=== PATIENT | female | born 1975 | race Caucasian/White ===

== ENCOUNTER → 2019-02-12 17:27 | Outpatient (CLI) | payer OTHER, SELFPAY | PROVIDERS: Family Provider Family Medicine; PCP Family Medicine; Referring Provider Nurse Practitioner Family; Visit Provider Nurse Practitioner Family | DX: N39.0 Urinary tract infection, site not specified (principal) | CPT/HCPCS: 87086 ==

== ENCOUNTER 2019-07-28 08:34 | Observation (INO) | payer OTHER, SELFPAY ==
[2019-07-28] VITALS (11 sets, daily range): BP systolic 100–144; BP diastolic 61–104; PULSE 65–80; RESP 16–18; TEMP 36.4–37.7; O2SAT 70–99; BMI 34.6; BMI 34.3; BMI 34.4
--- NOTE | 2019-07-28 08:52 | CT_ITS ---
STUDY: CT ABDOMEN AND PELVIS WITHOUT CONTRAST REASON FOR EXAM: Female, 43 years old. RT FLANK PAIN X 2 DAYS, N/V, [place] RADIATION DOSAGE (If Supplied By Facility): CTDIvol = ( 17.56 ) mGy, DLP = ( 960.66 ) mGycm TECHNIQUE: Transaxial images were obtained from the dome of the diaphragm to the symphysis pubis without oral contrast, and without intravenous contrast. Sagittal and coronal images were reconstructed. Individualized dose optimization techniques were used for this CT. COMPARISON: None. FINDINGS: The visualized lung bases are unremarkable. The visualized portions of the heart are within normal limits. Normal liver. There are surgical clips in the gallbladder fossa consistent with a prior cholecystectomy. Normal spleen. Normal pancreas. Normal bilateral adrenal glands. Marked in degree of right hydronephrosis and right hydronephrosis down to the right ureterovesical junction due to a 5.2 mm calculus. There is evidence of right perinephric stranding.. There is a 2.2 cm by 2.4 cm hypodensity in the posterior lateral aspect of the upper pole of the right kidney suggestive of a cyst. There is a nonobstructive 4.8 mm calculus in the lower pole calyx of the left kidney. There is a small hiatal hernia. Normal small intestine. Normal colon. The appendix is visualized and appears normal. Normal abdominal aorta. Normal inferior vena cava. There is borderline retroperitoneal lymphadenopathy with enlarged nodes no greater than 10mm in the short axis diameter. Normal urinary bladder. Normal abdominal wall. Normal osseous structures. CT/Abdomen/Pelvis without Cont IMPRESSION: 5.2 mm calculus at the right ureterovesical junction causing a marked degree of right hydronephrosis and right hydroureter. Small cyst in the upper pole of the right kidney. Nonobstructive calculus in the left kidney. Electronically Signed: Dale Hasy, at 10:28 EST , Service support ,
[2019-07-28 09:16] LABS: Absolute Lymphocyte Count 1.36 X10^3/uL (0.83-4.51); Absolute Neutrophil Count 13.5 X10^3/uL (2.0-7.7); Basophil# 0.06 X10^3/uL; Basophil% 0.4 % (0-1); Eosinophil# 0.03 X10^3/uL; Eosinophils% 0.2 % (0-5); Hematocrit 39.3 % (37-47); Hemoglobin 12.9 g/dL (12.0-15.0); Lymphocyte # 1.36 X10^3/ul (4.0); Lymphocyte % 8.5 % (19-41); Mean Corp Hgb Conc 32.8 g/dL (32-36); Mean Corpuscular Hgb 28.2 pg (27.0-32.0); Mean Corpuscular Volume 85.8 fL (81-99); Mean Platelet Vol. 11.4 fl (6.2-12.0); Monocyte# 0.96 X10^3/uL; NRBC Flagged by Analyzer 0 % (0-5); Neutrophil # 13.52 X10^3/uL (2.7-7.7); Neutrophil % 84.6 % (47-70); Platelet Count 271 K/mm3 (150-450); RBC Distribution Width CV 13.1 % (11.6-14.6); Red Blood Count 4.58 M/mm3 (4.2-5.4)
[2019-07-28] MEDS: 0.9% Normal Saline 1,000 ML 250 ML IV (09:18)
[2019-07-28] MEDS: Ketorolac 30 MG/ML Syringe 15 MG IV (09:19)
[2019-07-28] MEDS: Ondansetron 4 MG/2 ML Vial IV (09:19)
[2019-07-28 09:25] LABS: Mucous, Urine 0 SEEN /hpf (<or=2+)
--- NOTE | 2019-07-28 09:27 | ED.VIS.GEN ---
History of Present Illness Chief Complaint: Abd Pain Informant: Patient Onset: - July 26 Context: Sudden Onset Timing: Continuous Quality: Pain Location: Right flank radiating anteriorly Current Severity: Mild Maximum Severity: Moderate Worsened by: Movement Relieved by: Nothing Associated Symptoms: Nausea and vomiting Narrative: It is a 43-year-old woman status post cholecystectomy who presents with acute onset of right flank pain associate with nausea vomiting radiation anteriorly. She denies history of renal urolithiasis. She denies food intolerance. There is no history of trauma. She has not noted change in the color of her urine and specifically has not noted blood. She does report mild cough. The cough started several hours ago. She denies dyspnea or dyspnea on exertion. She has no other URI symptoms. She has not noted a rash. Prior similar symptoms: No Recent Illness/Hospitalization: No - Past Medical History (1) No significant past medical history Status: Acute Past Medical History - Allergies and Home Meds Allergies/Adverse Reactions: Allergies No Known Allergies Allergy (Verified 07/28/19 08:35) Primary Care Physician: Crista Charles MD [Primary Care Provider] - Surgical History: cholecystectomy Lives: Spouse/ Significant Other, With Family Smoking Status: Never smoker Alcohol: Rare Drugs: None Review of Systems General: Denies: Chills, Fever, Malaise, Subjective, Sweats Eyes: Denies: Visual changes - bilaterally, Blurred Vision - bilaterally ENT: Denies: Bilateral ear pain, Rhinorrhea, Sore throat Cardiovascular: Denies: Chest pain, Palpitations Respiratory: Reports: Cough. Denies: Dyspnea, Sputum, Dyspnea on exertion Gastrointestinal: Reports: Abdominal pain, Nausea, Vomiting. Denies: Diarrhea, Constipation, Melena, Hematochezia, -, - Genitourinary: Denies: Dysuria, Hematuria, Frequency Musculoskeletal: Reports: Back pain. Denies: Myalgias, Arthralgias, Neck pain, Swelling, Extremity Pain Skin: Denies: Rash, Wounds Neurological: Denies: Headache, Weakness, Numbness Hematologic: Denies: Easy bruising, Easy bleeding Physical Exam Vital Signs/Narrative: Vital Signs Temp Pulse Resp BP Pulse Ox 07/28/19 08:36 98.4 F 71 17 142/89 H 99 Inital Vital Signs reviewed: Yes General: Well nourished, Well developed, Obese, No Acute Distress Head: Normocephalic, Atraumatic Eyes: Perrl, EOMI. Negative for: Pale conjunctiva, Scleral icterus ENT: Moist mucous membranes, No rhinorrhea, TM's clear Neck: Supple, Nontender, No lymphadenopathy, No JVD Cardiovascular: Regular rate, Regular rhythm, No murmurs, Normal S1, Normal S2 Respiratory: No distress, CTA bilaterally, Chest nontender Abdomen: Soft, Nondistended, Normal bowel sounds, No masses, Tender - Tenderness in the right side. There is no tenderness in the proximity McBurney's point.. Negative for: Hepatomegaly, Splenomegaly, Mass, Rovsig's sign, Ramirez's sign Back: Nontender, Normal Inspection, CVA tenderness. Negative for: Spinal tenderness Extremities: Nontender, No edema Skin: Normal color, No rash, No Trauma. Negative for: Cyanosis, Diaphoresis, Jaundice Neurological: Alert, Oriented x3, Cranial nerves II-XII grossly intact, Normal Strength, Normal Sensation Psychological: Normal affect, Normal Mood Diagnostic/Tx/Re-eval 07/28/19 08:52 Abdomen/Pelvis without Cont [CT] Stat Laboratory Results 07/28/19 07/28/19 07/28/19 09:05 09:05 09:15 WBC 16.0 H RBC 4.58 Hgb 12.9 Hct 39.3 MCV 85.8 MCH 28.2 MCHC 32.8 RDW Std Deviation 40.0 RDW Coeff of [place] 13.1 Plt Count 271 MPV 11.4 Immature Gran % (Auto) 0.300 Neut % (Auto) 84.6 H Lymph % (Auto) 8.5 L [place] % (Auto) 6.0 Eos % (Auto) 0.2 Baso % (Auto) 0.4 Absolute Neuts (auto) 13.5 H Absolute Lymphs (auto) 1.36 Nucleated RBC % 0 Sodium 135 L Potassium 3.9 Chloride 108 H Carbon Dioxide 23.0 Anion Gap 4 L BUN 15 Creatinine 1.34 H Estim Creat Clear Calc 53.73 Est GFR (MDRD) Af Amer 56 L Est GFR (MDRD) Non-Af 46 L BUN/Creatinine Ratio 11.2 Glucose 97 Calcium 9.9 Urine Color Yellow Urine Clarity Sl. Cloudy Urine pH 5.0 Ur Specific [place] 1.020 Urine Protein Negative Urine Glucose (UA) Normal Urine Ketones Negative Urine Occult Blood 50 H Urine Nitrite Negative Urine Bilirubin Negative Urine Urobilinogen Normal Ur Leukocyte Esterase 100 H Urine RBC 0-5 SEEN Urine WBC 0-5 SEEN Ur Squamous Epith Cells 0-5 SEEN Urine Bacteria RARE Urine Mucus 0 SEEN Formal read by radiologist is pending. Case was discussed with urologist. He is made aware of patient history, physical, laboratory results and CT results. He requested admission. He requested nurse call for orders. - Medical Decision Making Acute onset of flank pain rating anteriorly need to consider renal/ureteral lithiasis. Since patient is status post cholecystectomy doubt choledocholithiasis. This may represent a urinary tract infection. Appropriate blood work including UA was obtained. Because there is significant tenderness on the right side and may represent atypical presentation for appendicitis CT of the abdomen pelvis without contrast was obtained to evaluate both the system and the appendix since symptoms have been present for greater than 24 hours. It is elevated. Urine reveals leukoesterase. There is no pyuria on microscopic. There is evidence of bacteria. Urine culture was ordered. She did receive 1 g of Rocephin. Because of the elevated creatinine from 0.8-1.3 for significant hydronephrosis and hydroureter secondary to obstructing distal stone Dr. duffy was paged. ED Disposition - Plan for ED Patient: Disposition: Acute Care Hospital [facility] Diagnosis: Hydronephrosis concurrent with and due to calculi of kidney and ureter, Acute renal insufficiency, Dehydration, Bacteria in urine Referrals: Crista Charles MD [Primary Care Provider] -
[2019-07-28 09:29] LABS: Anion Gap 4 (5-15); BUN 15 mg/dL (7-18); BUN/Creat Ratio 11.2 RATIO (10-20); Calcium,Total 9.9 mg/dL (8.5-10.1); Chloride 108 mmol/L (98-107); Creatinine, Serum 1.34 mg/dL (0.55-1.02); EST Glomerular Filtration Rate 46 mL/min (>60); Est Glom Filt Rate - Afr Amer 56 mL/min (>60); Estimated Creatinine Clearance 53.73 ml/min; Glucose 97 mg/dL (74-106); Potassium 3.9 mmol/L (3.5-5.1); Sodium Level 135 mmol/L (136-145)
[2019-07-28 09:36] LABS: Color, Urine Yellow (Yellow); Glucose, Dipstick Normal (Normal); Ketone-Dipstick Negative (Negative); Leukocyte Esterase-Dipstick 100 /ul (Negative); Nitrite-Dipstick Negative (Negative); Occult Blood-Urine 50 /ul (Negative); Protein-Dipstick Negative (Negative); Urine Bilirubin Dipstick Negative (Negative); Urine Clarity Sl. Cloudy (Clear); Urine Urobilinogen Normal (Normal)
[2019-07-28 09:40] LABS: Red Blood Cells-Urine 0-5 SEEN /hpf (0-5); Squamous Epithelial Cells - UA 0-5 SEEN /hpf (5-10); White Blood Cells 0-5 SEEN /hpf (0-5)
[2019-07-28 09:41] LABS: Bacteria RARE /hpf (None Seen)
--- NOTE | 2019-07-28 10:27 | NURSING ---
MED SURG OBS KIM HYDRONEPHROSIS AND URETER DUE TO OBSTRUCTING CALCULUS, ABILIO, DEHYDRATION
[2019-07-28] MEDS: Ceftriaxone 1 GM/50 ML BAG IV (10:37)
[2019-07-28] MEDS: Morphine 4 MG/ML Syringe IV (10:38)
[2019-07-28] MEDS: 0.9% Normal Saline 1,000 ML 125 ML IV ×2 (12:21→17:21)
--- NOTE | 2019-07-28 12:28 | PCM.HP.STD ---
History of Present Illness Date of Admission: 07/28/19 Chief Complaint: Right kidney stone The patient is a 43 year old female admitted from the emergency room with severe right hydronephrosis and a high grade obstruction and a 5 mm stone in the distal right ureter. She also has elevated white blood count possible bacteria in the urine. 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 Lives: Spouse/ Significant Other, With Family Smoking Status: Never smoker Tobacco Use: Non-smoker Alcohol: Rare Drugs: None - *Family History Maternal History Items: No pertinent history Review of Systems Constitutional: Denies: Chills, Fever, Weight Change HEENT: Denies: Head Aches, Sinus Congestion, Sinus Drainage Cardiovascular: Denies: Chest Pain, Palpitations Respiratory: Denies: Cough, Shortness of breath at rest, Sputum production Gastrointestinal: Denies: Abdominal Pain, Nausea, Vomiting Genitourinary: Denies: Dysuria Musculoskeletal: Denies: Joint Pain, Joint Tenderness Skin: Denies: Rash, Wounds Neurological: Denies: Numbness, Tingling, Focal weakness Psychiatric: Denies: Anxiety, Depression, Homicidal Ideations, Suicidal Ideations Hematologic/ Lymphatic: Denies: Easy Bruising, Easy Bleeding VTE Information - Inpt Only VTE Present on Admission: No Patient Problems: Active and Suspected Problems No significant past medical history (Acute) Hydronephrosis concurrent with and due to calculi of kidney and ureter (Acute) Acute renal insufficiency (Acute) Dehydration (Acute) Bacteria in urine (Acute) - Physical Exam Vitals/I&O's: Vital Signs Temp Pulse Resp BP Pulse Ox 98.2 F 69 18 144/104 H 99 07/28/19 11:10 07/28/19 11:10 07/28/19 11:10 07/28/19 11:10 07/28/19 11:10 Oxygen Delivery Method Room Air Weight: 99.5 kg Body Mass Index (BMI) 34.3 Intake and Output for Last 24 Hours 07/26/19 07/27/19 07/28/19 23:59 23:59 23:59 Intake Total 812.5 / 812.5 Balance 812.5 / 812.5 General: Alert, Oriented x3, Cooperative HEENT: Atraumatic, PERRLA, EOMI, Normocephalic Neck: Supple, No JVD, Negative Carotid Bruits Lungs: Clear to auscultation, Normal air movement Cardiovascular: Regular rate, No murmurs Abdomen: Bowel Sounds Present, Soft, Non Tender Extremities: No edema, Capillary Refill Less than 3 Seconds Skin: No rashes, No breakdown Musculoskeletal: No Tenderness to Palpation of Joints or Extremities Neurological: Cranial nerves II-XII grossly intact Psych/Mental Status: Normal Affect, Appropriate Laboratory Results 07/28/19 09:05: WBC 16.0 H, RBC 4.58, Hgb 12.9, Hct 39.3, MCV 85.8, MCH 28.2, MCHC 32.8, RDW Std Deviation 40.0, RDW Coeff of [place] 13.1, Plt Count 271, MPV 11.4, Immature Gran % (Auto) 0.300, Neut % (Auto) 84.6 H, Lymph % (Auto) 8.5 L, [place] % (Auto) 6.0, Eos % (Auto) 0.2, Baso % (Auto) 0.4, Absolute Neuts (auto) 13.5 H, Absolute Lymphs (auto) 1.36, Nucleated RBC % 0 07/28/19 09:05: Sodium 135 L, Potassium 3.9, Chloride 108 H, Carbon Dioxide 23.0, Anion Gap 4 L, BUN 15, Creatinine 1.34 H, Estim Creat Clear Calc 53.73, Est GFR (MDRD) Af Amer 56 L, Est GFR (MDRD) Non-Af 46 L, BUN/Creatinine Ratio 11.2, Glucose 97, Calcium 9.9 07/28/19 09:15: Urine Color Yellow, Urine Clarity Sl. Cloudy, Urine pH 5.0, Ur Specific [place] 1.020, Urine Protein Negative, Urine Glucose (UA) Normal, Urine Ketones Negative, Urine Occult Blood 50 H, Urine Nitrite Negative, Urine Bilirubin Negative, Urine Urobilinogen Normal, Ur Leukocyte Esterase 100 H, Urine RBC 0-5 SEEN, Urine WBC 0-5 SEEN, Ur Squamous Epith Cells 0-5 SEEN, Urine Bacteria RARE, Urine Mucus 0 SEEN Current Medications Sodium Chloride () 250 mls @ 15 mls/hr IV .[id number] PRN PRN Reason: Saline Flush Sodium Chloride () 250 mls @ 15 mls/hr IV .[id number] PRN PRN Reason: Additional IVPB Infusion Sodium Chloride () 1,000 mls @ 125 mls/hr IV .Q8H SAVANNAH Last Admin: 07/28/19 12:21 Dose: 125 mls/hr Documented by: Morphine Sulfate () 2 mg IV Q2H PRN PRN PRN Reason: Pain Score 1-10/10 Ondansetron HCl (Zofran) 4 mg IV Q6H PRN PRN PRN Reason: NAUSEA/VOMITING Sodium Chloride () 10 - 40 ml IV UD PRN PRN Reason: SALINE FLUSH Assessment/Plan All Active Problems No significant past medical history (Acute) Hydronephrosis concurrent with and due to calculi of kidney and ureter (Acute) Acute renal insufficiency (Acute) Dehydration (Acute) Bacteria in urine (Acute) 43-year-old female with a large stone in the distal right ureter, n.p.o. for surgery for today plan to add her on for the schedule for right ureteroscopy possible laser possible stent. She understands that if I cannot get to the stone will just place a stent with the bring her back as an outpatient but also possible if there is an active infection that I may just place a stent to clear the infection and then bring her back as an outpatient.
[2019-07-28 16:04] LABS: Internal QC Validated? YES +Cl - CLEAR BKGD; Pregnancy, Urine Negative Negative
--- NOTE | 2019-07-28 16:31 | DCINST_ITS ---
Discharge Diet: Light diet - advance as tolerated Discharge Activity: Return to Normal Activity Call your doctor if your incision/area has: Sudden Increased Bleeding Call your doctor if you observe: Fever of 101 or Higher Suture Line Care: Avoid Pulling/Pushing, Avoid Pinching/Bending Allergies/Adverse Reactions: Allergies No Known Allergies Allergy (Verified 07/28/19 08:35) Medications to take at Discharge Ciprofloxacin [Cipro] 500 mg PO BID #10 tab 07/28/19 Hydrocodone/Acetaminophen [[place] 5-325 Tablet] 1 each PO Q4H PRN PRN 5 Days #20 tablet 07/28/19 The following prescriptions were given: Ciprofloxacin [Cipro] 500 mg PO BID #10 tab Transmission Status: Pending to [id number] Hydrocodone/Acetaminophen [[place] 5-325 Tablet] 1 each PO Q4H PRN PRN 5 Days #20 tablet PRN Reason: Pain Score 1-10/10 Transmission Status: Sent to [id number] Primary Care Physician: Crista Charles MD [Primary Care Provider] - Test Results: Test results from this visit will be discussed in further detail at your follow- up appointment, if applicable. Please Follow Up With: Prem Espitia MD When: please call to make an appointment.
--- NOTE | 2019-07-28 16:55 | OP.PCM_ITS ---
Report of Operation Date of Procedure: 07/28/19 Pre-Operative Diagnosis: Right ureteral calculus causing obstruction Post-Operative Diagnosis: Same plus cystitis and infection Surgery/Procedure Performed:: Cystoscopy, balloon dilation of the right ureter, right stent placement Description of Surgical Findings:: 43-year-old female presented to the hospital with severe right flank pain and renal colic she was admitted for pain control her urine was positive for infection with bacteria she understands and can take her to surgery possible removal of stone but does not have active infection will have to delay that to avoid any infectious complications. 43-year-old female taken back to the operating room at the smooth induction of general anesthesia she was placed supine on the table and then a dorsolithotomy position, the urethra and vaginal area were prepped and draped in usual sterile fashion, I went into the bladder with a 21 Egyptian rigid cystourethroscope I first I looked at the left side but has a cannula related the ureter did not feel any stone under x-ray can see any stone so we double checked the images and the stone was actually in the right side so then I went to the right side I cannulated the right ureteral orifice and immediately could feel the stone the wire is a advance it up to the kidney but then I got E flux of purulent looking infected urine I then advanced the ureter balloon dilator balloon dilated the re nal ureter and was think by doing ureteroscopy but however I got more pus and foul looking urine coming from the right side so at this point I decided to abort the attempt to get the stone and will place a stent so over the wire advanced a 6 Egyptian by 26 cm stent but the short string on it and then drained the bladder and removed the cystoscope patient's anesthetic was reversed plan is to send the urine for culture we will send her home with antibiotics and pain medicine will set her up for a ureteroscopy and laser next week in the operating room. Type of Anesthesia:: General Drains: stent - Admit VTE Documentation VTE Present on Admission: No VTE Mechan Device Prophylaxis: SCD's
[2019-07-28] MEDS: Morphine 2 MG/ML Syringe IV (20:07)
[2019-07-28] MEDS: 0.9% Saline Lock 10 ML Syringe IV (20:07)
== END 2019-07-28 21:08 | disposition home or self-care (01) ==
LOC: ED 10:24 → MS3 14:26
PROVIDERS: Anesthesiology; Admitting Provider Urology; Emergency Provider Emergency Medicine; Family Provider Family Medicine; PCP Family Medicine; Referring Provider Urology; Visit Provider Urology
PROC: 0TJ98ZZ Inspection of Ureter, Via Natural or Artificial Opening Endoscopic (ICD-10-PCS; CPT 52352; principal; 2019-07-28 16:05)
DX: N13.6 Pyonephrosis (principal); E86.0 Dehydration
CPT/HCPCS: 00910; 52332; 74176; 76000; 80048; 81001; 81025; 85025; 87086; 87088; 96361; 96365; 96375; 96376; 99218; 99284; J7030; J7050; A4216; C1726; C1769; C2617; G0378; J2405

== ENCOUNTER 2019-08-08 17:23 | Observation (INO) | payer OTHER, SELFPAY ==
[2019-07-28 15:17] VITALS: BMI 34.3
[2019-08-08] VITALS (12 sets, daily range): BP systolic 98–141; BP diastolic 49–89; PULSE 51–116; RESP 16–18; TEMP 36.5–39.2; O2SAT 96–100; BMI 33.7
[2019-08-08 11:19] LABS: Internal QC Validated? YES +Cl - CLEAR BKGD
[2019-08-08 11:20] LABS: Pregnancy, Urine Negative Negative
[2019-08-08] MEDS: Lactated Ringers 1,000 ML 100 ML IV ×2 (11:27→14:04)
[2019-08-08] MEDS: Cefazolin 2 GM in 0.9% Normal Saline 100 ML IV (12:57)
--- NOTE | 2019-08-08 13:03 | DCINST_ITS ---
Discharge Diet: Light diet - advance as tolerated Discharge Activity: Return to Normal Activity Call your doctor if your incision/area has: Sudden Increased Bleeding Allergies/Adverse Reactions: Allergies No Known Allergies Allergy (Verified 08/08/19 11:04) Medications to take at Discharge Hydrocodone/Acetaminophen [[place] 5-325 Tablet] 1 ea PO PRN PRN 08/05/19 Ciprofloxacin [Cipro] 500 mg PO BID #6 tab 08/08/19 Hydrocodone/Acetaminophen [[place] 5-325 Tablet] 1 each PO Q4H PRN PRN #10 tablet 08/08/19 The following prescriptions were given: Ciprofloxacin [Cipro] 500 mg PO BID #6 tab Transmission Status: Pending to [id number] Hydrocodone/Acetaminophen [[place] 5-325 Tablet] 1 each PO Q4H PRN PRN #10 tablet PRN Reason: Pain Score 1-10/10 Transmission Status: Sent to [id number] Primary Care Physician: Crista Charles MD [Primary Care Provider] - Test Results: Test results from this visit will be discussed in further detail at your follow-up appointment, if applicable. Please Follow Up With: Prem Espitia MD When: please call to make an appointment.
--- NOTE | 2019-08-08 13:28 | OP.PCM_ITS ---
Report of Operation Date of Procedure: 08/08/19 Pre-Operative Diagnosis: Right ureteral calculi Post-Operative Diagnosis: Same Surgery/Procedure Performed:: Cystoscopy, balloon dilation of the right ureter, ureteroscopy laser lithotripsy of stone, basket of fragments, right stent placement Description of Surgical Findings:: 44-year-old female who has a stone in the distal right ureter she is failed to pass it on her own spontaneously today presents for ureteroscopy and laser lithotripsy of the stone and stent placement. She was taken back to the operating room after smooth induction of anesthesia she was placed in dorsolithotomy position when of the bladder with a 21 Tristanian rigid cystourethroscope the entire length urethra was normal and the bladder was normal identified the right ureteral orifice I cannulated the right ureter with a Glidewire and a 0.038 hydrophilic Glidewire. Initially the wire we hit the stone would not go past it so then I backloaded a balloon dilator onto the wire and then with this was able to get the wire past the stone up into the ureter I then balloon dilated the distal ureter with a 12 Tristanian balloon dilator then this allowed me to perform ureteroscopy, I then went in with the ureteroscope encountered the stone that was stuck in some severe inflammation in the ureter as I worked on the stone the stone loosened and then backed up into the ureter was more open capacious I then laser the stone little tiny pieces using laser lithotripsy I used a 265 ?m laser fiber energy settings were point 6 J and 6 Hz after lasering the stone little tiny pieces that I used the basket and pulled out the fragments into the bladder and some of the fragments were sent off as specimen, I then removed the ureteroscope and backloaded the cystoscope with a wire advanced a stent up into the right kidney pulled the wire the stent coiled in the kidney bladder good condition plan to see her next week to remove the stent. Type of Anesthesia:: General Drains: stent right - Admit VTE Documentation VTE Present on Admission: No VTE Mechan Device Prophylaxis: SCD's
[2019-08-08] MEDS: Lactated Ringers 1,000 ML 75 ML IV (18:21)
[2019-08-08] MEDS: Cefazolin 1 GM/50 ML BAG IV (22:33)
[2019-08-09 03:34] VITALS: BP 93/41; PULSE 80; RESP 16; TEMP 36.6; O2SAT 100
[2019-08-09] MEDS: HYDROcodone Bitartrate/Apap 5/325 Tablet PO ×2 (03:46→08:09)
[2019-08-09] MEDS: Cefazolin 1 GM/50 ML BAG IV (05:28)
[2019-08-09] MEDS: Lactated Ringers 1,000 ML 75 ML IV (08:05)
[2019-08-09 08:10] VITALS: BP 99/44; PULSE 70; RESP 14; TEMP 36.9; O2SAT 96
[2019-08-09 12:40] VITALS: BP 107/59; PULSE 64; RESP 14; TEMP 36.9; O2SAT 98
== END 2019-08-09 12:52 | disposition home or self-care (01) ==
LOC: SDC 18:12 → MS3 08-11 09:38
PROVIDERS: Anesthesiology; Admitting Provider Urology; Family Provider Family Medicine; PCP Family Medicine; Referring Provider Urology; Visit Provider Urology
PROC: (CPT 52353; principal; 2019-08-08 12:55)
DX: N20.1 Calculus of ureter (principal); K21.9 Gastro-esophageal reflux disease without esophagitis; J45.909 Unspecified asthma, uncomplicated
CPT/HCPCS: 00918; 52356; 81025; 96361; 96365; 96366; 99218; J7120; C1769; C2617; G0378; G0379; J2405

== ENCOUNTER → 2020-02-06 07:24 | Outpatient (CLI) | payer OTHER, SELFPAY ==
[2019-08-08 18:23] VITALS: BMI 33.7
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
== END ==
PROVIDERS: PCP Family Medicine; Referring Provider Family Medicine; Visit Provider Family Medicine
DX: S06.0X9A Concussion with loss of consciousness of unspecified duration, initial encounter (principal); X58.XXXA Exposure to other specified factors, initial encounter; Y93.9 Activity, unspecified; Y92.9 Unspecified place or not applicable; Y99.9 Unspecified external cause status
CPT/HCPCS: 70450

== ENCOUNTER → 2022-02-16 | Outpatient (CLI) | payer OTHER, SELFPAY | END | disposition home or self-care (01) | PROVIDERS: PCP Family Medicine; Visit Provider Family Medicine | DX: Z20.822 Contact with and (suspected) exposure to COVID-19 (principal) | CPT/HCPCS: 87635; U0003; U0005 ==

== ENCOUNTER 2022-04-06 22:47 | Emergency (ER) | payer OTHER, SELFPAY ==
[2022-04-06 22:48] VITALS: BP 141/73; PULSE 70; RESP 18; TEMP 36.7; O2SAT 95; BMI 34.4
[2022-04-06 23:01] LABS: Mucous, Urine 0 SEEN /hpf (<or=2+); Squamous Epithelial Cells - UA 0 SEEN /hpf (5-10)
[2022-04-06 23:10] LABS: Color, Urine Yellow (Yellow); Glucose, Dipstick Normal (Normal); Ketone-Dipstick Negative (Negative); Leukocyte Esterase-Dipstick 500 /ul (Negative); Nitrite-Dipstick Negative (Negative); Occult Blood-Urine 250 /ul (Negative); Protein-Dipstick 100 mg/dl (Negative); Specific Gravity, Urine 1.025 (1.002-1.030); Urine Bilirubin Dipstick Negative (Negative); Urine Clarity Cloudy (Clear); Urine Urobilinogen Normal (Normal)
[2022-04-06 23:18] LABS: White Blood Cells >100 SEEN /hpf (0-5)
[2022-04-06 23:19] LABS: Bacteria 2+ /hpf (None Seen); Red Blood Cells-Urine 10-25 SEEN /hpf (0-5)
--- NOTE | 2022-04-06 23:39 | EDS_ITS ---
HPI History of Present Illness Chief Complaint: Complaint Informant: patient Onset/Context/Timing Onset: Days (2) Context: Gradual Onset Timing: Continuous Quality: Sharp, burning Location: Suprapubic Worsened by: Nothing Relieved by: Nothing Narrative Narrative: Patient presents with bladder pain that has been getting worse over the past 2 days. Patient states she had a similar episode approximately 2 weeks ago that cleared up with antibiotics. Patient describes her pain as sharp and burning. Patient states it is over the suprapubic area. Patient states it radiates into her back. Patient admits to some nausea but denies any vomiting. Patient denies any fevers or chills. Patient states nothing makes the pain worse and nothing makes it better. Patient admits to some dysuria and urinary frequency. Prior similar symptoms: Yes PFSH PFSH Medical History no medical history no medical history Home Medications hydrocodone-acetaminophen 5-325mg 5mg-325mg 1 ea PO PRN PRN Pain Or Fever 08/05/19 [History Last Taken Unknown] ciprofloxacin HCl 500 mg tablet 500 mg PO BID #6 tabs 08/08/19 [Rx Last Taken Unknown] hydrocodone-acetaminophen 5-325mg 5mg-325mg 1 ea PO Q4H PRN PRN Pain Score 1- 10/10 #10 tabs 08/08/19 [Rx Last Taken Unknown] sulfamethoxazole 800 mg-trimethoprim 160 mg tablet 1 tab PO BID #6 TABLETS 04/06/22 [Rx Last Taken Unknown] Allergy/AdvReac Type Severity Reaction Status Date / Time No Known Allergies Allergy Verified 04/06/22 22:51 Surgical History (Updated 04/06/22 @ 23:[address] Philippe Barclay DO) Hx of cholecystectomy Social History Smoking Status: Never smoker ROS ROS ED Constitutional Constitutional ED: Denies chills or fever(s) Eyes Eyes: Denies blurry vision or change in vision ENT ENT ED: Denies rhinorrhea or sore throat Cardiovascular Cardiovascular: Denies chest pain or palpitations Respiratory/Chest Respiratory/Chest: Denies cough or dyspnea Gastrointestinal Gastrointestinal: Reports nausea; Denies vomiting Genitourinary Genitourinary ED: Reports dysuria and urinary frequency; Denies hematuria Musculoskeletal Musculoskeletal: Reports back pain; Denies neck pain Integumentary Denies abscess or rash Neurologic Neurologic: Denies headache(s) or weakness Allergic/Immunologic Allergic/Immunologic ED: Denies mouth swelling or urticaria EXAM Physical Exam Const Vital Signs: 04/06/22 22:48 Temperature 98.1 F Temperature Source Temporal Pulse Rate 70 Respiratory Rate 18 Blood Pressure 141/73 H Blood Pressure Mean 95 Pulse Ox 95 Oxygen Delivery Method Room Air Positive well nourished, well developed and obese General Appearance ED: well developed and NAD Nutritional Appearance: obese HEENT Reports moist mucous membranes Neck supple and no JVD Resp normal respiratory effort and clear to auscultation bilaterally Cardio regular rate, regular rhythm and no murmurs GI normal to inspection, nondistended, normoactive bowel sounds Palpation: soft and tender suprapubic; Negative for guarding or rebound tenderness present Extremity normal to inspection General Extremety ED: Negative for edema or tenderness General Extremity: Negative for edema Neuro oriented x3, CN's II-XII intact bilaterally and no sensory deficits noted Sensorium / Orientation: alert Motor Exam: strength 5/5 throughout Psych mental status grossly normal MDM MDM MDM Narrative Medical decision making narrative: Urinalysis was obtained and shows a leukocyte esterases of 500 with greater than 100 white blood cells and 2+ bacteria. There were 10-25 red blood cells with occult blood of 250. Urine culture was obtained. Patient was given a dose of Bactrim here. Patient was given a prescription for Bactrim. Patient was instructed to drink plenty of fluids. Patient was instructed to follow-up with her primary care physician in 5 to 7 days. Patient was also instructed to follow-up with Dr. Espitia. Patient understood and was agreeable with the plan. All questions were answered. Lab Data Attestation: I reviewed the patient's lab results. Labs: Laboratory Results - last 24 hr 04/06/22 22:58 Urine Color Yellow Urine Clarity Cloudy Urine pH 6.0 Ur Specific [place] 1.025 Urine Protein 100 H Urine Glucose (UA) Normal Urine Ketones Negative Urine Occult Blood 250 H Urine Nitrite Negative Urine Bilirubin Negative Urine Urobilinogen Normal Ur Leukocyte Esterase 500 H Urine RBC 10-25 SEEN Urine WBC >100 SEEN Ur Squamous Epith Cells 0 SEEN Urine Bacteria 2+ Urine Mucus 0 SEEN Discharge Plan Triage Chief Complaint: Complaint ED Provider: Philippe Barclay Dx/Rx/DC Orders Clinical Impression: Urinary tract infection, Obesity (BMI 30.0-34.9) Instructions: ED Cystitis Female Adult Prescriptions: New sulfamethoxazole-trimethoprim [sulfamethoxazole-trimethoprim] 1 TABLET tablet 1 tab PO BID Qty: 6 0RF No Action hydrocodone-acetaminophen 1 EACH tablet 1 ea PO PRN PRN (Reason: Pain Or Fever) hydrocodone-acetaminophen 1 EACH tablet 1 ea PO Q4H PRN PRN (Reason: Pain Score 1-10/10) Qty: 10 0RF ciprofloxacin HCl 500 MG tablet 500 mg PO BID Qty: 6 0RF Primary Care Provider: Crista Charles Referrals: Crista Charles MD [Primary Care Provider] - 3-5 Days Prem Espitia MD [Med Staff - Active Staff] - 5-7 Days Disposition Disposition: Home, Self Care Discharge Date/Time: 04/06/22 23:53
[2022-04-06] MEDS: Smz/Tmp Ds Tablet 1 TABLET PO (23:50)
== END 2022-04-06 23:53 | disposition home or self-care (01) ==
PROVIDERS: Emergency Provider Emergency Medicine; PCP Family Medicine; Visit Provider Emergency Medicine
DX: N39.0 Urinary tract infection, site not specified (principal); R11.0 Nausea; E66.9 Obesity, unspecified
CPT/HCPCS: 81001; 99283

== ENCOUNTER → 2022-04-14 | Outpatient (CLI) | payer OTHER, SELFPAY | END | disposition home or self-care (01) | PROVIDERS: PCP Family Medicine; Referring Provider Family Medicine; Visit Provider Family Medicine | DX: R10.9 Unspecified abdominal pain (principal) | CPT/HCPCS: 87086; 87088 ==

== ENCOUNTER → 2022-11-20 | Outpatient (CLI) | payer OTHER, SELFPAY ==
--- NOTE | 2022-11-20 10:02 | RAD_ITS ---
INDICATION: Shoulder pain, no known injury EXAMINATION/TECHNIQUE: X-RAY - RIGHT XR Shoulder Min 2 Views 4 VIEWS COMPARISON: None. FINDINGS: SOFT TISSUES: No soft tissue swelling or gas. No radiopaque foreign body. BONES/JOINTS: No acute fracture. Joint spaces anatomically aligned. No sclerotic or destructive changes observed. RAD/Shoulder min 2 Views IMPRESSION: Unremarkable study. Electronically Signed: Alexandro Kim MD at 18:07 EDT ,
== END | disposition home or self-care (01) ==
LOC: MTRAD 10:01
PROVIDERS: PCP Family Medicine; Referring Provider Family Medicine; Visit Provider Family Medicine
DX: M25.511 Pain in right shoulder (principal)
CPT/HCPCS: 73030